=== PATIENT | female | born 1955 | race Caucasian/White ===

== ENCOUNTER 2020-07-26 08:09 | Day surgery (SDC) | payer BC ==
[2020-07-23 12:42] VITALS: BMI 24.7
[2020-07-26 10:14] VITALS: BP 110/47; PULSE 54; TEMP 98
== END 2020-07-26 10:13 | disposition home or self-care (01) ==
LOC: FASU-ENDO 08:09
PROVIDERS: ATTEND Internal Medicine Gastroenterology
PROC: 0DJD8ZZ Inspection of Lower Intestinal Tract, Via Natural or Artificial Opening Endoscopic (ICD-10-PCS; principal; 2020-07-26 08:57)
DX: Z12.11 Encounter for screening for malignant neoplasm of colon (principal)